=== PATIENT | female | born 1990 | race Caucasian/White ===

== ENCOUNTER → 2017-10-23 | Outpatient (CLI) | payer OTHER ==
[2017-10-23] MEDS: IOHEXOL 240 MG/ML 50ML VIAL. PO ×2 (10:14)
[2017-10-23] MEDS: IOHEXOL 300 MG/ML 100ML VIAL. IV ×4 (10:14)
== END | disposition home or self-care (01) ==
LOC: KCIC CT 08:42
DX: R91.8 Other nonspecific abnormal finding of lung field (principal); R21 Rash and other nonspecific skin eruption; J98.11 Atelectasis; J34.2 Deviated nasal septum
CPT/HCPCS: 70491; 71260; 74177; Q9966; Q9967

== ENCOUNTER → 2019-03-02 | Outpatient (CLI) | payer OTHER ==
[~2019-03-02] MED LIST: ESCITALOPRAM OX10 MG PO; IOHEXOL 300 MG/ML 100ML VIAL. IV ONE
--- NOTE | 2019-03-02 17:43 | KCIC ---
CT scan of the neck with contrast 03/02/2019 CLINICAL HISTORY: Leukocytosis. TECHNIQUE: After the intravenous administration of 89 cc of Omnipaque 300, contiguous, 3 mm axial sections were obtained through the neck. One or more of the following individualized dose reduction techniques were utilized for this study: 1. Automated exposure control. 2. Adjustment of the mA and/or kV according to patient size. 3. Use of iterative reconstruction technique. FINDINGS: Comparison study is dated 04/22/2018. The mucosal structures of the nasopharynx, oropharynx, hypopharynx and larynx are within normal limits. The parotid and submandibular glands are within normal limits. The thyroid gland is within normal limits. Prominent likely reactive cervical lymph nodes are seen scattered throughout the neck. These measure 1 cm to 2 cm in size. They have decreased in size when compared to the previous examination where there measured 1.6 to 2 cm in greatest diameter.. No abnormal soft tissue mass or fluid collection is seen. The visualized paranasal sinuses are clear. The osseous structures are grossly intact. IMPRESSION: Interval decrease in size of the reactive lymph nodes within the neck. No acute abnormality is seen. Electronically signed by: Saúl Rodriguez MD (03/02/2019 5:41 PM) [facility]
== END | disposition home or self-care (01) ==
LOC: KCIC CT 10:11
PROVIDERS: ATTEND Internal Medicine
DX: D72.829 Elevated white blood cell count, unspecified (principal); R91.1 Solitary pulmonary nodule
CPT/HCPCS: 70491; Q9967

== ENCOUNTER 2019-07-28 07:01 | Outpatient (CLI) | payer OTHER ==
[~2019-07-28] VITALS: Ht 172.7 cm; Wt 82.6 kg
[2019-07-28] VITALS (9 sets, daily range): BP systolic 106–118; BP diastolic 69–76
[~2019-07-28 07:01] MED LIST changes: -IOHEXOL 300 MG/ML 100ML VIAL. IV ONE
[2019-07-28] MEDS ORDERED: TRAZ-118 PO (07:34)
[2019-07-28] MEDS ORDERED: DOXY25TA42 PO (07:34)
[2019-07-28] MEDS ORDERED: DIPH25CA58 PO (07:34)
[2019-07-28] MEDS ORDERED: NORE1TAB11 PO (07:34)
[2019-07-28] MEDS ORDERED: RANI-348 PO (07:34)
[2019-07-28] MEDS ORDERED: DULO60CA45 PO (07:34)
[2019-07-28 07:44] LABS: BASO # 0.1 x10^3/uL (0.0-0.2); BASO % 1 % (0-3); EOS # 0.4 x10^3/uL (0.0-0.7); EOS % 4 % (0-3); HEMOGLOBIN 13.3 g/dL (12.0-15.5); LYMPH # 2.9 x10^3/uL (1.0-4.8); LYMPH % 29 % (24-48); MEAN CORPUSCULAR HEMOGLOBIN 31 pg (25-35); MEAN CORPUSCULAR HGB CONC 34 g/dL (31-37); MEAN CORPUSCULAR VOLUME 90 fL (79-100); MONO # 0.7 x10^3/uL (0.0-1.1); MONO % 7 % (0-9); NEUT % 60 % (31-73); PLATELET COUNT 292 x10^3/uL (140-400); RED BLOOD COUNT 4.35 x10^6/uL (3.50-5.40); RED CELL DISTRIBUTION WIDTH 13.6 % (11.5-14.5); WHITE BLOOD COUNT 10.1 x10^3/uL (4.0-11.0)
[2019-07-28 07:53] LABS: PROTHROMBIN TIME PATIENT 12.1 SEC (11.7-14.0)
[2019-07-28] MEDS ORDERED: fentaNYL PF VIAL 100 MCG/2 ML VIAL ONE (07:55)
[2019-07-28] MEDS ORDERED: MIDAZOLAM HCL/PF 2 MG/2 ML VIAL. ONE (07:55)
[2019-07-28] MEDS ORDERED: MIDAZOLAM HCL/PF 2 MG/2 ML VIAL. IV ONE (08:15)
[2019-07-28] MEDS ORDERED: fentaNYL PF VIAL 100 MCG/2 ML VIAL IV ONE (08:15)
[2019-07-28] MEDS ORDERED: LIDOCAINE WITH 8.4% SOD BICARB 3 ML DISP.SYRIN. ONE (08:36)
[2019-07-28] MEDS: LIDOCAINE WITH 8.4% SOD BICARB 3 ML DISP.SYRIN. IJ ONE ×2 (08:38→08:40)
--- NOTE | 2019-07-28 09:55 | NUR ---
Discharge Note: KAYE ROBERSON Discharge instructions and discharge home medications reviewed with Patient and a copy given. All questions have been answered and understanding verbalized.
--- NOTE | 2019-07-29 08:37 | RAD ---
CT-guided bone marrow biopsy. 07/29/2019 6:33 AM Indication: LEUKOCYTOSIS Discussion: The risks and benefits of the procedure, including but not limited to, bleeding and infection were discussed patient. Informed consent was obtained. The patient was brought to the CT scanner and placed in the prone position. A timeout procedure was performed. [facility] CT imaging of the pelvis demonstrated left ilium amenable to bone marrow biopsy. The overlying soft tissues were prepped and draped using maximum sterile barrier technique. 1% lidocaine without epinephrine was administered for local anesthesia. Under intermittent CT guidance, an Onc Control needle was advanced into the bone marrow of the left iliac crest. 2 Aspirates and 1 core biopsy samples were obtained. Samples were delivered to pathology was present at the time of procedure. The needle was removed and manual pressure held to achieve hemostasis. No immediate complications were identified. The procedure was performed under conscious sedation including continuous cardiopulmonary monitoring via dedicated sedation nurse. Sedation time: 20 minutes Impression: Successful CT-guided bone marrow biopsy of the left iliac crest . PQRS Compliance Statement: One or more of the following individualized dose reduction techniques were utilized for this examination: 1. Automated exposure control 2. Adjustment of the mA and/or kV according to patient size 3. Use of iterative reconstruction technique
--- NOTE | 2019-07-31 22:06 | PATHOLOGY ---
[facility] Accession Number: [id number] . 01 Material submitted: . PART A: bone - BONE MARROW BIOPSY PART B: bone - BONE MARROW CLOT PART C: bone - BONE MARROW ASPIRATE SLIDES PART D: bone - PERIPHERAL BLOOD SMEARS PART E: bone - BONE MARROW FLOW . 01 Clinical history: . Leukocytosis . This is a 28-year-old woman with a previous history of leukocytosis, now with high normal WBC/borderline mild leukocytosis. . 02 Diagnosis: Bone marrow aspirate, biopsy, cell clot and peripheral blood: - Peripheral blood with borderline mild leukocytosis. - Normocellular bone marrow with trilineage hematopoiesis, minimal (no significant) dyspoiesis and no evidence of lymphoma or acute leukemia. (See comment) . (CLW:robb; 07/31/2019) [facility] 07/31/2019 1205 [facility] . 02 Comment: Overall, the bone marrow is normocellular for the patient's age with trilineage hematopoiesis, minimal (no significant) dyspoiesis and no evidence of lymphoma or acute leukemia. Correlation with clinical history, additional laboratory data and cytogenetics is recommended. . (CLW:robb; 07/31/2019) . 02 Electronically signed: . Henrietta Kemp MD, Pathologist NPI- [id number] . 01 Gross description: . A. Received in formalin labeled "Beto Andrew BM BX," is a single needle core of mireles bone measuring 2.0 cm in length and 0.2 cm in diameter. The specimen is submitted entirely in cassette A1, following decalcification. . B. Received in formalin labeled "Beto Andrew BM Asp clot," is an aggregate of dark mireles blood clot measuring 2.7 x 0.4 x 0.1 cm. The specimen is filtered and entirely submitted in cassette B1. (TSD; 07/28/2019) TOB/TOB 07/28/2019 1721 Local . 02 Microscopic: . CBC Data (07/28/19): WBC 10,100/uL, RBC 4.35, hemoglobin 13.3 g/dL, hematocrit 39.0%, MCV 90 fL, MCH 31 pg, MCHC 34 g/dL, RDW 13.6%, and platelet count 292,000 /uL. White blood cell differential: segs 60%, lymphs 29%, monos 7%, eos 4%, and basos 1%. . Peripheral Blood Smear: Cytomorphological examination of the Nichols's stained peripheral blood smear confirms the provided data. Red blood cells are normocytic and are without significant anisopoikilocytosis. White blood cells are borderline mildly elevated. There are predominantly segmented neutrophils that are without significant dyspoiesis or significant left shift. Lymphocytes are predominantly small, round, and mature appearing with condensed chromatin and scant cytoplasm with admixed large granular lymphocytes and reactive-appearing lymphocytes. On scanning, no markedly atypical lymphoid cells are seen. Monocytes are mature. Platelets are adequate in number and mainly normal in morphology with rare larger platelets noted. . Aspirate Smears: Cytomorphological examination of the Nichols's stained aspirate smears shows spicules present. The overall cellularity is approximately 70-80%. The myeloid to erythroid ratio is 3:1. Full myeloid maturation is identified and is minimally dyspoietic with focal megaloblastoid changes. Erythroid maturation is minimally dyserythropoietic with irregular nuclear contours and focal megaloblastoid changes. In a 500 cell differential, there are 1% blasts (no Homar rods are seen), 64% more differentiated myeloids, 21% erythroid precursors and 14% lymphocytes. Megakaryocytes are proportional in number and mainly normal in morphology. No lymphoid aggregates or markedly atypical lymphoid cells are seen. Rare plasma cells are without atypia. Iron stain of the aspirate smear shows 2/4+ iron positivity with spicules present. No ringed sideroblasts are identified. . Core Biopsy and Cell Clot: The decalcified bone marrow core biopsy is adequate. The bone marrow is normocellular with an overall cellularity of approximately 80%. The myeloid to erythroid ratio is 2-3:1. Myeloid and erythroid maturation are without significant dyspoiesis. Megakaryocytes are normal in number and mainly normal in morphology. No lymphoid aggregates or markedly atypical lymphoid cells are seen. Bony trabeculae and blood vessels are unremarkable. The cell clot has spicules present that are similar in cellularity and differential morphology as previously described. . Properly-controlled special stains are performed: . Block A1: Iron: 1/4+ iron positivity Reticulin: No significant reticulin fibrosis . Block B1: Iron: 1-2/4+ iron positivity with spicules present . Flow Cytometry: Flow cytometric immunophenotypic analysis was performed at [facility]. The diagnosis is "no diagnostic immunophenotypic abnormalities detected." There are 8.0% lymphocytes. Of the lymphocytes, there are 80% T-cells with a CD4/CD8 ratio of 1.2 and no aberrant T-cell antigen expression and 13% polyclonal mature B-cells (kappa lambda ratio of 1:5). There are 0.8% CD34 positive cells (blasts). No immunophenotypic evidence of a lymphoproliferative disorder, acute leukemia, increase in blasts, or plasma cell neoplasm is identified. Please see separate flow cytometry report from [facility] ([id number]). . Cytogenetics Analysis: Cytogenetic chromosomal analysis is pending at [facility] ([id number]). . (CLW:robb; 07/31/2019) . 02 Pathologist provided ICD-10: D72.829 . 02 CPT . 612797, 573450, 881887, 041220, 028199, 728151, 783956, [id number], [id number] Specimen Comment: A courtesy copy of this report has been sent to [phone], [phone] Specimen Comment: [phone], Specimen Comment: Report sent to ,DR CLEVELAND / DR ISIDRO Performed at: 01 [facility] [address], [place], [place] [id number] MD Sanjay Park MD Phone: [phone] Performed at: 02 [facility] [address] [place], [place] [id number] MD Jason Massey MD Phone: [phone]
== END 2019-07-28 09:56 | disposition home or self-care (01) ==
LOC: INTRAD 07:01
PROVIDERS: ATTEND Internal Medicine Hematology & Oncology
DX: D72.829 Elevated white blood cell count, unspecified (principal); Z79.899 Other long term (current) drug therapy; Z79.01 Long term (current) use of anticoagulants
CPT/HCPCS: 36415; 38222; 77012; 85025; 85610; 88184; 88185; 88237; 99152; J2250; J3010